=== PATIENT | female | born 1985 | race Caucasian/White ===

== ENCOUNTER 2017-03-20 12:12 | Inpatient (IN) | payer OTHER ==
[~2017-03-20] VITALS: Ht 175.3 cm; Wt 79.0 kg
[~2017-03-20 12:12] MED LIST: DOCU-131 PO; IBUP-1222 PO; OXYC-302 PO
[2017-03-20] MEDS ORDERED: LACTATED RINGERS 1,000 ML IV SCH (12:46)
[2017-03-20] MEDS ORDERED: OXYTOCIN 30U/ 0.9% NaCL 500ML 500 ML IV ONE (12:46)
[2017-03-20] MEDS ORDERED: FENTANYL PF 100 MCG/2ML IVPush PRN (13:00)
[2017-03-20] MEDS ORDERED: TERBUTALINE 1 MG/ML, 1ML IVPush PRN (13:00)
[2017-03-20] MEDS ORDERED: FENTANYL PF 100 MCG/2ML IV PRN (13:00)
[2017-03-20] MEDS ORDERED: ONDANSETRON 2MG/ML, 2ML IVPush PRN (13:00)
[2017-03-20 13:19] LABS: HEMATOCRIT 34.2 % (34.6-47.8); HEMOGLOBIN 11.8 g/dL (11.7-16.4); WHITE BLOOD COUNT 10.9 x10^3/uL (3.4-10)
[2017-03-20] MEDS ORDERED: PLEASE ENTER HEIGHT AND WEIGHT MC SCH (13:30)
[2017-03-20] MEDS ORDERED: BUPIVACAINE 0.25% ONE ×2 (14:02→14:05)
[2017-03-20] MEDS ORDERED: FENTANYL PF 100 MCG/2ML ONE (14:02)
[2017-03-20] MEDS ORDERED: FENTANYL/BUPIV./NS/PF 250 ML EPIDCONT ONE (14:03)
[2017-03-20] MEDS ORDERED: LIDOCAINE/PF 1.5%-EPI 1:200K, 30ML ONE (14:05)
[2017-03-20] MEDS: OXYTOCIN 30U/ 0.9% NaCL 500ML 500 ML IV SCH (16:52)
[2017-03-20] MEDS ORDERED: OXYcodone/APAP 5/325MG TABLET PO PRN ×2 (17:00)
[2017-03-20] MEDS ORDERED: DOCUSATE 100 MG CAPSULE PO PRN (17:00)
[2017-03-20] MEDS ORDERED: MISOPROSTOL 200 MCG TABLET PR PRN (17:00)
[2017-03-20] MEDS ORDERED: ACETAMINOPHEN 325 MG TABLET PO PRN (17:00)
[2017-03-20] MEDS ORDERED: ONDANSETRON 2MG/ML, 2ML IV PRN (17:00)
[2017-03-20] MEDS ORDERED: IBUPROFEN 600 MG TABLET PO PRN (17:00)
[2017-03-20] MEDS ORDERED: OXYTOCIN 30U/ 0.9% NaCL 500ML 500 ML ONE (17:19)
[2017-03-20] MEDS ORDERED: NEWBORN KIT ONE (17:19)
[2017-03-20 19:35] VITALS: BP 114/62
[2017-03-20 22:30] VITALS: BP 113/63
[2017-03-21 02:35] VITALS: BP 117/75
[2017-03-21] MEDS: OXYTOCIN 30U/ 0.9% NaCL 500ML 500 ML IV SCH (02:52)
[2017-03-21 05:57] LABS: HEMATOCRIT 33.1 % (34.6-47.8); HEMOGLOBIN 11.3 g/dL (11.7-16.4); WHITE BLOOD COUNT 10.7 x10^3/uL (3.4-10)
[2017-03-21 07:50] VITALS: BP 114/70
[2017-03-21] MEDS ORDERED: PRENATAL VIT/IRON/FA 1 EACH TABLET PO SCH (09:00)
[2017-03-21] MEDS ORDERED: IBUP-1222 PO (13:55)
[2017-03-21] MEDS ORDERED: PREN1TAB10 PO (13:56)
== END 2017-03-21 17:00 | disposition home or self-care (01) | DRG 775 ==
LOC: LDOP 12:12 → LDIP 12:44 → 2NW 19:02
PROVIDERS: ADMIT Obstetrics & Gynecology; ATTEND Obstetrics & Gynecology
PROC: 10E0XZZ Delivery of Products of Conception, External Approach (ICD-10-PCS; principal; 2017-03-20)
DX: O69.81X0 Labor and delivery complicated by cord around neck, without compression, not applicable or unspecified (principal); Z37.0 Single live birth; Z3A.40 40 weeks gestation of pregnancy
CPT/HCPCS: 36415; 85025; 86850; 86900; J3490; J2590; J3010; J7120

== ENCOUNTER 2019-01-07 16:21 | Inpatient (IN) | payer OTHER ==
[~2019-01-07] VITALS: Ht 175.3 cm; Wt 80.0 kg
[~2019-01-07 16:21] MED LIST changes: +PREN1TAB10 PO
[2019-01-08] MEDS ORDERED: OXYTOCIN 30U/ 0.9% NaCL 500ML 500 ML IV ONE (06:14)
[2019-01-08] MEDS ORDERED: OXYTOCIN 30U/ 0.9% NaCL 500ML 500 ML IV PRN (06:14)
[2019-01-08 06:22] VITALS: BP 140/78
[2019-01-08] MEDS ORDERED: ONDANSETRON 2MG/ML, 2ML IVPush PRN ×2 (06:30→12:30)
[2019-01-08] MEDS ORDERED: ASPI-496 PO (06:30)
[2019-01-08] MEDS ORDERED: FENTANYL PF 100 MCG/2ML IVPush PRN (06:30)
[2019-01-08] MEDS ORDERED: FENTANYL PF 100 MCG/2ML IV PRN (06:30)
[2019-01-08 06:34] LABS: BASOPHILS # (AUTO) 0.01 x10^3/uL (0-0.1); BASOPHILS % (AUTO) 0 % (0-1); EOSINOPHILS # (AUTO) 0.03 x10^3/uL (0-0.4); EOSINOPHILS % (AUTO) 0 % (1-7); LYMPHOCYTES % (AUTO) 23 % (22-44); MD NO; MEAN CORPUSCULAR HEMOGLOBIN 30.3 pg (27.0-34.8); MEAN CORPUSCULAR HGB CONC 32.8 g/dL (32.4-35.8); MEAN CORPUSCULAR VOLUME 92.6 fL (80-100); MEAN PLATELET VOLUME 8.2 fL (7.4-10.4); MONOCYTES # (AUTO) 0.38 x10^3/uL (0.2-0.8); MONOCYTES % (AUTO) 6 % (2-9); NEUTROPHILS # (AUTO) 4.95 x10^3/uL (1.8-6.8); NEUTROPHILS % (AUTO) 71 % (42-75); PLATELET COUNT 195 x10^3/uL (130-400); RED CELL DISTRIBUTION WIDTH 14.4 % (9.6-15.2)
[2019-01-08] MEDS: LACTATED RINGERS 1,000 ML IV SCH ×2 (06:43→11:24)
[2019-01-08] MEDS ORDERED: OXYTOCIN 30U/ 0.9% NaCL 500ML 500 ML ONE (06:45)
[2019-01-08] MEDS ORDERED: FENTANYL/BUPIV./NS/PF 250 ML EPIDCONT SCH ×2 (07:30→12:10)
[2019-01-08] MEDS ORDERED: FENTANYL PF 500 MCG, BUPIVACAINE/PF 0.5%, 30ML 62.5 ML in SODIUM CHLORIDE 0.9% 177.5 ML EPIDCONT SCH (08:00)
[2019-01-08 08:15] LABS: ALANINE AMINOTRANSFERASE 11 U/L (12-78); ALBUMIN 2.7 g/dL (3.4-5.0); ANION GAP 6 mmol/L (5-15); CHLORIDE 107 mmol/L (98-107); CREATININE 0.64 mg/dL (0.55-1.02)
[2019-01-08 08:17] LABS: ALKALINE PHOSPHATASE 148 U/L (45-117); BILIRUBIN,TOTAL 0.3 mg/dL (0.2-1.0); TOTAL PROTEIN 6.8 g/dL (6.4-8.2)
[2019-01-08 08:21] LABS: BILIRUBIN, DIRECT < 0.1 mg/dL (0.1-0.2)
[2019-01-08 09:05] LABS: MICROSCOPIC INDICATED
[2019-01-08] MEDS ORDERED: BUPIVACAINE 0.25% ONE ×2 (11:30→11:35)
[2019-01-08] MEDS ORDERED: FENTANYL PF 100 MCG/2ML ONE (11:30)
[2019-01-08] MEDS ORDERED: FENTANYL/BUPIV./NS/PF 250 ML EPIDCONT ONE (11:35)
[2019-01-08] MEDS ORDERED: LIDOCAINE/PF 1.5%-EPI 1:200K, 30ML ONE (11:35)
[2019-01-08] MEDS ORDERED: LACTATED RINGERS 1,000 ML IV SCH (12:10)
[2019-01-08] MEDS ORDERED: LACTATED RINGERS 1,000 ML IVBOLUS PRN (12:30)
[2019-01-08] MEDS ORDERED: EPHEDRINE 50 MG/ML, 1ML IVPush PRN (12:30)
[2019-01-08] MEDS ORDERED: NEWBORN KIT ONE (17:28)
[2019-01-08] MEDS ORDERED: ONDANSETRON 2MG/ML, 2ML IV PRN (18:00)
[2019-01-08] MEDS ORDERED: METOCLOPRAMIDE 5 MG/ML, 2ML IV PRN (18:00)
[2019-01-08] MEDS ORDERED: METHYLERGONOVINE 0.2 MG/ML IM PRN (18:00)
[2019-01-08] MEDS ORDERED: RHOGAM FROM BLOOD BANK 1 NOTE EA IM/IV ONE (18:00)
[2019-01-08] MEDS ORDERED: MISOPROSTOL 200 MCG TABLET PR PRN (18:00)
[2019-01-08] MEDS ORDERED: OXYcodone IR 5MG TABLET PO PRN ×2 (18:00)
[2019-01-08] MEDS ORDERED: CARBOPROST TROMETHAMINE 250 MCG/ML, 1ML IM PRN (18:00)
[2019-01-08 19:45] VITALS: BP 134/81
[2019-01-08] MEDS: OXYTOCIN 30U/ 0.9% NaCL 500ML 500 ML IV SCH (22:37)
[2019-01-09 01:00] VITALS: BP 132/74
[2019-01-09] MEDS: IBUPROFEN 800 MG TABLET PO PRN ×2 (01:25→15:44)
[2019-01-09 03:20] LABS: MEAN CORPUSCULAR HEMOGLOBIN 31.9 pg (27.0-34.8); MEAN CORPUSCULAR HGB CONC 33.9 g/dL (32.4-35.8); MEAN PLATELET VOLUME 8.9 fL (7.4-10.4); PLATELET COUNT 158 x10^3/uL (130-400); RED BLOOD COUNT 3.19 x10^6/uL (3.82-5.3); RED CELL DISTRIBUTION WIDTH 14.4 % (9.6-15.2)
[2019-01-09 03:42] LABS: BASOPHILS # (AUTO) 0.04 x10^3/uL (0-0.1); BASOPHILS % (AUTO) 1 % (0-1); EOSINOPHILS # (AUTO) 0.03 x10^3/uL (0-0.4); EOSINOPHILS % (AUTO) 0 % (1-7); LYMPHOCYTES # (AUTO) 1.63 x10^3/uL (1-3.4); LYMPHOCYTES % (AUTO) 18 % (22-44); MD SCAN; MONOCYTES # (AUTO) 0.45 x10^3/uL (0.2-0.8); MONOCYTES % (AUTO) 5 % (2-9); NEUTROPHILS # (AUTO) 6.78 x10^3/uL (1.8-6.8); NEUTROPHILS % (AUTO) 76 % (42-75)
[2019-01-09] MEDS: OXYTOCIN 30U/ 0.9% NaCL 500ML 500 ML IV SCH ×2 (03:51→13:51)
[2019-01-09 04:28] VITALS: BP 134/84
[2019-01-09 07:51] VITALS: BP 133/86
[2019-01-09] MEDS ORDERED: PRENATAL VIT/IRON/FA 1 EACH TABLET PO SCH (09:00)
[2019-01-09 12:15] VITALS: BP 132/71
[2019-01-09 16:02] VITALS: BP 135/75
[2019-01-09] MEDS ORDERED: IBUP-1223 PO (17:42)
== END 2019-01-09 19:44 | disposition home or self-care (01) | DRG 807 ==
LOC: LDIP 01-08 06:11 → 2NW 01-08 20:28
PROVIDERS: ADMIT Obstetrics & Gynecology; ATTEND Obstetrics & Gynecology
PROC: 10E0XZZ Delivery of Products of Conception, External Approach (ICD-10-PCS; principal; 2019-01-08)
PROC: 10907ZC Drainage of Amniotic Fluid, Therapeutic from Products of Conception, Via Natural or Artificial Opening (ICD-10-PCS; 2019-01-08)
DX: O48.0 Post-term pregnancy (principal); Z37.0 Single live birth; Z3A.40 40 weeks gestation of pregnancy; Z79.82 Long term (current) use of aspirin
CPT/HCPCS: 36415; J3490; 80053; 81001; 82248; 84550; 85025; 86850; 86900; G0378; J2590; J3010; J7120